=== PATIENT | female | born 1965 | race Caucasian/White ===

== ENCOUNTER 2021-06-19 15:03 | Emergency (ER) | payer OTHER ==
[~2021-06-19 15:03] MED LIST: ATENOLOL50 MG PO; HCTZ25 MG PO; IBUPROFEN800 MG PO; K-DUR20 MEQ PO; LASIX40 MG PO; LEVOTHROID 0.0.15 MG PO; ULTRAM50 MG PO; [UNRECOGNIZED DRUG - OTHER]
[2021-06-19] MEDS ORDERED: NAPROXEN500 MG PO (16:34)
[2021-06-19] MEDS ORDERED: BACLOFEN 10MG T10 MG PO (16:34)
== END 2021-06-19 16:40 | disposition home or self-care (01) ==
LOC: FER 15:03
DX: M54.42 Lumbago with sciatica, left side (principal); I10 Essential (primary) hypertension
CPT/HCPCS: 96372; 99283; J1100; J1885